=== PATIENT | female | born 1950 | race Caucasian/White ===

== ENCOUNTER → 2016-04-29 | Outpatient (CLI) | payer BC ==
--- NOTE | 2016-04-30 02:04 | REP ---
Clinical: Acute on chronic cough. History of bronchitis and COPD . Comparison: 02/03/2016 . Technique: PA and lateral. Findings: The mediastinum and cardiac silhouette are normal. The lung horan are clear and without acute consolidation, effusion, or pneumothorax. The skeletal structures are intact and normal. Impression: 1. No acute cardiopulmonary process. If the patient remains symptomatic consider CT for further investigation. Signed by Ronald Chavis MD 04/30/2016 01:55 A
== END ==
LOC: M CLY 11:21
PROVIDERS: ATTEND Nurse Practitioner Family
DX: J40 Bronchitis, not specified as acute or chronic (principal)

== ENCOUNTER → 2016-09-28 | Outpatient (REF) | payer BC | LOC: M SFHCCLAY 08:37 | PROVIDERS: ATTEND Nurse Practitioner Family | DX: E78.4 Other hyperlipidemia (principal) ==

== ENCOUNTER → 2017-01-19 | Outpatient (CLI) | payer BC ==
--- NOTE | 2017-01-19 15:26 | REP ---
MRI LUMBAR SPINE WITHOUT CONTRAST: HISTORY: Bilateral leg pain. Decreased signal intensity on T2-weighted images is present in the lumbar intervertebral discs. The L3-4 and L4-5 intervertebral discs are decreased in height. These findings are consistent with disc degeneration. There is no disc bulge or herniation at the L1-2 through L3-4 levels. The nerves exit the neural foramina without compression. A diffuse disc bulge is present at the L4-5 level. There is minimal compression of the thecal sac. There is hypertrophy of the ligamenta flava and posterior articulating facets. The L4 nerves exit the neural foramina without compression. A diffuse disc bulge and small central disc protrusion are present at the L5-S1 level. The disc protrusion abuts the thecal sac. There is hypertrophy of the posterior articulating facets. The L5 nerves exit the neural foramina without compression. The conus medullaris is normal in appearance terminating at the level of the L1-2 intervertebral disc. A focus of decreased and isointense signal intensity on T1 and T2-weighted images respectively is present in the L2 vertebral body. This most likely represents a hemangioma. Normal signal intensity is present in the remaining lumbar vertebral bodies. IMPRESSION: 1. Diffuse disc bulge at the L4-5 level with minimal thecal sac compression. 2. Diffuse disc bulge and small central disc protrusion at the L5-S1 level. The disc protrusion abuts the thecal sac. The disc protrusion is a new finding. Signed by Tino Calhoun MD 01/19/2017 03:32 P
== END ==
LOC: M RAD 01-01 10:13
PROVIDERS: ATTEND Nurse Practitioner Family
DX: M54.16 Radiculopathy, lumbar region (principal); M47.817 Spondylosis without myelopathy or radiculopathy, lumbosacral region

== ENCOUNTER → 2017-04-06 | Outpatient (CLI) | payer BC | LOC: M LRY 12:24 | DX: R05 Cough (principal) | CPT/HCPCS: 71046 ==

== ENCOUNTER → 2017-09-26 | Outpatient (REF) | payer BC ==
[2017-09-26 11:35] LABS: HEMATOCRIT 39.5 % (36.0-47.0); HEMOGLOBIN 13.7 g/dl (12.0-15.5); MEAN CORPUSCULAR HEMOGLOBIN 31.4 pg (27.0-33.0); MEAN CORPUSCULAR HGB CONC 34.7 g/dl (32.0-36.5); MEAN CORPUSCULAR VOLUME 90.4 fl (80.0-96.0); PLATELET COUNT, AUTOMATED 452 10^3/uL (150-450); RED BLOOD COUNT 4.37 10^6/uL (4.00-5.40); RED CELL DISTRIBUTION WIDTH 13.1 % (11.5-14.5); WHITE BLOOD COUNT 7.2 10^3/uL (4.0-10.0)
[2017-09-26 12:10] LABS: TOTAL 25(OH) VITAMIN D 36.8 NG/ML (30.0-100.0)
[2017-09-26 12:15] LABS: ALBUMIN 4.2 GM/DL (3.2-5.2); ALKALINE PHOSPHATASE 76 U/L (45-117); ALT/SGPT 22 U/L (12-78); ANION GAP 8 MEQ/L (8-16); AST/SGOT 20 U/L (7-37); BILIRUBIN,TOTAL 0.8 MG/DL (0.2-1.0); BLOOD UREA NITROGEN 15 MG/DL (7-18); CALCIUM LEVEL 9.7 MG/DL (8.8-10.2); CARBON DIOXIDE LEVEL 32 MEQ/L (21-32); CHLORIDE LEVEL 93 MEQ/L (98-107); CHOLESTEROL LEVEL 194 MG/DL (<200); CHOLESTEROL RISK RATIO 3.233 (<5); CREATININE FOR GFR 1.03 MG/DL (0.55-1.30); GLOMERULAR FILTRATION RATE 56.6 (>45); GLUCOSE, FASTING 89 MG/DL (70-100); HDL CHOLESTEROL 60 MG/DL (>40); LDL CHOLESTEROL 103.2 MG/DL (<100); NON-HDL-C 134 MG/DL; POTASSIUM SERUM 4.5 MEQ/L (3.5-5.1); SODIUM LEVEL 133 MEQ/L (136-145); TOTAL PROTEIN 7.7 GM/DL (6.4-8.2); TRIGLYCERIDES LEVEL 154 MG/DL (<150)
== END ==
LOC: M SFHCCLAY 09:31
DX: E78.4 Other hyperlipidemia (principal); K21.9 Gastro-esophageal reflux disease without esophagitis; I10 Essential (primary) hypertension; E55.9 Vitamin D deficiency, unspecified
CPT/HCPCS: 80053

== ENCOUNTER → 2017-12-20 | Outpatient (REF) | payer BC ==
[2017-12-20 17:34] LABS: ANION GAP 8 MEQ/L (8-16); BLOOD UREA NITROGEN 12 MG/DL (7-18); CALCIUM LEVEL 9.5 MG/DL (8.8-10.2); CARBON DIOXIDE LEVEL 33 MEQ/L (21-32); CHLORIDE LEVEL 86 MEQ/L (98-107); GLOMERULAR FILTRATION RATE > 60.0 (>45); GLUCOSE, FASTING 93 MG/DL (70-100); POTASSIUM SERUM 4.3 MEQ/L (3.5-5.1); SODIUM LEVEL 127 MEQ/L (136-145)
== END ==
LOC: M SFHCCLAY 10:50
DX: Z01.818 Encounter for other preprocedural examination (principal)
CPT/HCPCS: 80048